=== PATIENT | female | born 1990 ===

== ENCOUNTER 2021-07-09 23:48 | Emergency (ER) ==
[~2021-07-09] VITALS: Ht 160 cm; Wt 81.6 kg
[2021-07-09] MEDS ORDERED: EFFE75CA2 PO (23:59)
== END 2021-07-10 02:29 | disposition left against medical advice (07) ==
LOC: M ED 23:48
DX: Z53.21 Procedure and treatment not carried out due to patient leaving prior to being seen by health care provider (principal)

== ENCOUNTER → 2022-07-17 | Outpatient (REF) ==
[~2022-07-17] MED LIST: EFFE75CA2 PO
[2022-07-17 10:57] LABS: RSV AMPLIFICATION NEGATIVE (NEGATIVE)
== END ==
LOC: M EMP 08:34
PROVIDERS: ATTEND Family Medicine
DX: Z11.52 Encounter for screening for COVID-19 (principal)

== ENCOUNTER → 2022-07-18 | Outpatient (REF) | LOC: M EMP 09:14 | PROVIDERS: ATTEND Family Medicine | DX: Z11.52 Encounter for screening for COVID-19 (principal) ==